=== PATIENT | male | born 1985 | race Caucasian/White ===

== ENCOUNTER 2016-09-19 11:43 | Emergency (ER) | payer BC ==
[2016-09-19 12:36] LABS: URINE SOURCE CLEAN CATCH
[2016-09-19 12:40] LABS: URINE APPEARANCE CLEAR; URINE BILIRUBIN NEG (NEG); URINE BLOOD NEG (NEG); URINE COLOR YELLOW; URINE GLUCOSE NEG (NEG); URINE KETONE NEG (NEG); URINE LEUKOCYTE ESTERASE NEG (NEG); URINE NITRATE NEG (NEG); URINE PROTEIN NEG (NEG); URINE SPECIFIC GRAVITY 1.024 (1.003-1.035)
[2016-09-19 12:43] LABS: CULTURE INDICATED? NO
[2016-09-19 12:47] LABS: BASOPHIL% 0.3 % (0-2.5); EOSINOPHIL# 0.2 X10e3 (0-0.7); EOSINOPHIL% 2.3 % (0.0-7.0); HEMATOCRIT 49.4 % (38.0-50.0); HEMOGLOBIN 17.1 gm/dL (13.0-16.0); LYMPHOCYTE# 1.6 X10e3 (1.0-3.5); LYMPHOCYTE% 21.7 % (17.0-45.0); MEAN CELL VOLUME 86.4 FL (83-96); MEAN CORPUSCULAR HEMOGLOBIN 29.9 PG (28-34); MEAN CORPUSCULAR HGB CONC 34.6 g/dL (30-36); MEAN PLATELET VOLUME 8.2 FL (6.5-11.5); MONOCYTE# 0.4 X10e3 (0-1.0); MONOCYTE% 5.7 % (3.0-12.0); NEUTROPHIL# 5.2 X10e3 (1.5-7.1); PLATELET COUNT 146 X10e3 (140-420); RED BLOOD COUNT 5.72 X10e (3.90-5.60); RED CELL DISTRIBUTION WIDTH 12.3 % (11.0-15.5); WHITE BLOOD COUNT 7.4 X10e3 (4.0-10.5)
[2016-09-19 12:48] LABS: DIFF IND NO
[2016-09-19 12:50] LABS: AMPHETAMINE NEG (NEG); BARBITURATES NEG (NEG); BENZODIAZEPINES NEG (NEG); COCAINE NEG (NEG); MARIJUANA NEG (NEG); OPIATES NEG (NEG); TRICYCLIC ANTIDEPRESSANTS NEG (NEG); U METHADONE NEG (NEG)
[2016-09-19 13:11] LABS: ALBUMIN SERUM 4.4 g/dL (3.5-5.0); ALKALINE PHOSPHATASE 45 U/L (32-92); ALT (SGPT) 34 U/L (10-40); AST (SGOT) 22 U/L (10-42); BILIRUBIN, DIRECT 0.1 mg/dL (0.0-0.2); BILIRUBIN,INDIRECT 0.8 mg/dL (0.0-0.9); BILIRUBIN,TOTAL 0.9 mg/dL (0.2-2.0); BLOOD UREA NITROGEN 17 mg/dL (9-23); BUN/CREATININE RATIO 24.28; CALCIUM SERUM 8.8 mg/dL (8.4-10.2); CARBON DIOXIDE 25 mmol/L (22-31); CHLORIDE 106 mmol/L (100-111); CREATININE SERUM 0.7 mg/dL (0.6-1.4); GLOM FILT RATE Estimated 126.7 mL/min (>60); GLUCOSE FASTING 100 mg/dL (70-110); POTASSIUM 3.8 mmol/L (3.5-5.1); PROTEIN TOTAL SERUM 7.1 g/dL (6.0-8.3); SODIUM 136 mmol/L (135-145)
[2016-09-19 13:12] LABS: ALCOHOL BLOOD <5 mg/dL (0)
[2016-09-19 13:49] LABS: SALICYLATE <4.0 mg/dL
[2016-09-19 13:56] LABS: ACETAMINOPHEN <10 ug/mL
== END 2016-09-19 18:28 | disposition home or self-care (01) ==
LOC: CED 11:43
PROVIDERS: Emergency Medicine
DX: F32.9 Major depressive disorder, single episode, unspecified (principal); F22 Delusional disorders; R45.851 Suicidal ideations
CPT/HCPCS: 36415; 80048; 80076; 80307; 81003; 84443; 85025; 99283; G0480

== ENCOUNTER 2016-09-22 23:39 | Emergency (ER) | payer BC ==
--- NOTE | ~2016-09-22 | CT71 ---
[facility] A Service of [facility] & [facility] RADIOLOGY TEXT RESULTS PATIENT: CANDE IZAGUIRRE LOCATION: [facility] : 85 UNIT #: [id number] AGE: [address]: Amber Rojas APRN SEX: M ORDER DR: [id number] [facility] [address] [place], [place] [address] [id number] MR#: [id number] Acc #: [id number] NAME: CANDE IZAGUIRRE : 1985 SEX: M STUDY DATE/TIME: 09/23/2016 1:06 UNIT: [facility] ROOM: STUDY DESCRIPTION: CT Head Wo Contrast Attending Physician: Amber Rojas A.P.R.N. Ordering Physician: Amber Rojas A.P.R.N. Primary Care Physician: Primary Care Physician No MEDICAL IMAGING REPORT This report is preliminary unless electronic signature is present EXAM CT head, noncontrast, 09/23/16 HISTORY 30-year-old male in the ED complaining of 1-day history of severe headaches. TECHNIQUE CT examination of the head was performed without IV contrast. This CT exam was performed with one or more of the following radiation dose reduction techniques: Automatic exposure control, adjustment of mA and/or kV according to patient size, and iterative reconstruction. FINDINGS The examination is negative. No evidence of intracranial hemorrhage, mass, mass effect, cerebral edema, hydrocephalus or additional abnormality. IMPRESSION Negative head CT examination. Dictated by... Jeffery Orlando M.D. THIS IS AN ELECTRONICALLY VERIFIED REPORT Jeffery Orlando M.D. at 09/30/2016 1:57 PM ROCHELLE/camille TD: 09/23/2016 01:48 JOB #: [id number] MEDICAL IMAGING REPORT Page 1 of 1 COPY
== END 2016-09-23 01:39 | disposition home or self-care (01) ==
LOC: CED 23:39
DX: R51 Headache (principal); F32.9 Major depressive disorder, single episode, unspecified; F17.200 Nicotine dependence, unspecified, uncomplicated
CPT/HCPCS: 70450; 99284